=== PATIENT | female | born 1965 | race African-American/Black ===

== ENCOUNTER 2018-01-27 10:06 | Emergency (ER) | payer OTHER ==
[~2018-01-27] VITALS: Ht 165.1 cm; Wt 90.9 kg
[~2018-01-27 10:06] MED LIST: CIPROFLOXACN500 MG PO; CRESTOR20 MG OR; CRESTOR20 MG PO; FLONASE NASAL50 MCG; HAZAR OR; HYDROCHLOROT12.5 MG PO; HYZAAR1 TA1 OR; HYZAAR1 TA1 PO; LOSARTAN POT50 MG PO; METOPROLOL50 M1 PO; NAPROSYN500 MG OR; NITROSTAT0.4 MG SL; PLAVIX75 MG PO; PROTONIX40 MG PO; VITAMIN D35000 UNI1 PO; VITAMIN E PO; [UNRECOGNIZED DRUG - OTHER] PO; [UNRECOGNIZED DRUG - OTHER] PO
[2018-01-27 11:17] LABS: HEMATOCRIT 40.4 % (37.0-47.0); HEMOGLOBIN 12.5 g/dl (12.0-16.0); IMMATURE GRANULOCYTES 0.3 % (0.0-5.0); MEAN CELL VOLUME 85.6 fL CALC (80.0-100.0); MEAN CORPUSCULAR HGB 26.5 pG CALC (26.0-32.0); MEAN CORPUSCULAR HGB CONC 30.9 g/L CALC (32.0-36.0); NEUT# 3.18 thou/uL (2.00-7.15); RED BLOOD COUNT 4.72 mill/uL (4.20-5.60); RED CELL DISTRI WIDTH 14.1 % (11.5-15.5)
[2018-01-27 12:06] LABS: ANION GAP 12 (6-22 (CALC)); BUN 9 mg/dL (7-17); BUN/CREATININE RATIO 15 (12-20 (CALC)); CARBON DIOXIDE 27 mmol/l (22-30); CHLORIDE 105 mmol/l (95-108); CREATININE 0.6 mg/dL (0.5-1.0); GFR > 60 ML/MIN (>=60 (CALC)); GFR FOR AFR.AMER. > 60 ML/MIN (>=60 (CALC)); POTASSIUM 3.4 mmol/l (3.5-5.1); SODIUM 141 mmol/l (137-146)
[2018-01-27 16:02] VITALS: BP 181/89
== END 2018-01-27 16:38 | disposition short-term general hospital (02) | DRG 313 ==
LOC: ED 10:06
PROVIDERS: Family Medicine
DX: R07.9 Chest pain, unspecified (principal); M79.602 Pain in left arm; R06.02 Shortness of breath; I10 Essential (primary) hypertension